=== PATIENT | female | born 1945 | race Caucasian/White ===

== ENCOUNTER → 2022-02-14 13:39 | Outpatient (CLI) | payer OTHER, SELFPAY ==
[2022-02-14 15:03] LABS: Add Manual Diff / Slide Review NO; Basophils Absolute Auto 100 /uL (0-100); Basophils Percent Auto 0.8 % (0-2); Eosinophils Absolute Auto 100 /uL (0-450); Hematocrit 37.5 % (36-46); Lymphocytes Absolute Auto 1800 /uL (1100-4500); Lymphocytes Percent Auto 26.6 % (25-40); Mean Corpuscular HGB Conc 34.8 % (30-36); Mean Corpuscular Volume 92.1 fL (80-100); Monocytes Absolute Auto 600 /uL (0-900); Monocytes Percent Auto 8.7 % (3-14); Neutrophils Absolute Auto 4100 /uL (1500-7000); Neutrophils Percent Auto 61.9 % (50-75); Platelet Count 188 X10^3/uL (150-400); Red Blood Cell Count 4.07 X10^6/uL (4.0-5.2); Red Cell Distribution Width 12.5 % (11.6-14.8); White Blood Cell Count 6.7 X10^3/uL (4.5-11.0)
[2022-02-14 15:24] LABS: Appearance Urine UA CLEAR; Bilirubin Urine UA NEGATIVE (NEGATIVE); Color Urine UA YELLOW; Glucose Urine UA NEGATIVE (Negative); Ketones Urine UA NEGATIVE (NEGATIVE); Leukocyte Esterase Urine UA TRACE (NEGATIVE); Nitrite Urine UA NEGATIVE (Negative); Occult Blood Urine UA TRACE-LYSED (Negative); Protein Urine UA NEGATIVE (Negative); Urobilinogen Urine UA 0.2 E.U./dL (0.2)
[2022-02-14 15:26] LABS: Blood Urea Nitrogen 14 mg/dL (7-17); Calcium 9.6 mg/dL (8.4-10.2); Carbon Dioxide 28 mmol/L (22-32); Chloride 101 mmol/L (98-107); Estimated Glomerular Filt Rate > 60 mL/min (>60); Glucose 94 mg/dL (80-110); HEMOLYSIS < 15 (0-50); Potassium 3.9 mmol/L (3.4-5.1); Sodium 138 mmol/L (137-145)
[2022-02-14 16:27] LABS: Bacteria Urine Moderate (10-30); Culture Indicated Urine Specimen Cultured; RBC Urine None Seen (0-5/HPF); Squamous Epithelial Cell Urine 1-5 /HPF (0-5/HPF); Transitional Epi Cells Urine 1-5/HPF (0-5/HPF); WBC Urine 5-10/HPF (0-5/HPF)
== END ==
PROVIDERS: PCP Registered Nurse; Referring Provider Orthopaedic Surgery; Visit Provider Orthopaedic Surgery
DX: Z01.818 Encounter for other preprocedural examination (principal); R73.9 Hyperglycemia, unspecified; Z01.812 Encounter for preprocedural laboratory examination; N39.0 Urinary tract infection, site not specified
CPT/HCPCS: 36415; 80048; 81001; 83036; 85025; 87077; 87086; 87147; 87186; 93005

== ENCOUNTER 2022-02-16 11:21 | Inpatient (IN) | payer OTHER, SELFPAY ==
[2022-02-16] VITALS (13 sets, daily range): BP systolic 114–155; BP diastolic 53–72; PULSE 76–92; RESP 14–36; TEMP 35.9–36.6; O2SAT 92–98; BMI 29.5
--- NOTE | 2022-02-16 | DI.RAD.S_ITS ---
PROCEDURE: XR PELVIS 1-2V INDICATIONS: intra op pelvis film TECHNIQUE: Intra-operative view of the pelvis and hip acquired. COMPARISON: None. FINDINGS: Bones: Intraoperative devices prior to placement of arthroplasty prostheses are in expected positions. No fractures or suspicious bony lesions. Soft tissues: Unremarkable IMPRESSION: Expected appearance of prosthetic Sizer for left hip arthroplasty. Dictated by: Heather Brewster M.D. on 02/16/2022 at 16:22 Approved by: Heather Brewster M.D. on 02/16/2022 at 16:23
--- NOTE | 2022-02-16 10:15 | DI.RAD.S_ITS ---
PROCEDURE: XR HIP W PEL IF DONE LT 2V INDICATIONS: hip fracture TECHNIQUE: AP pelvis and lateral view of the left hip acquired. COMPARISON: [facility], CR, XR PELVIS WITH LATERAL HIP LEFT, 02/14/2022, 12:53. [facility], CR, XR PELVIS 1-2V, 02/16/2022, 14:59. FINDINGS: Bones: Patient is status post left hip arthroplasty, with hardware components in expected positions. The hip joint appears congruent. The visualized bony structures appear intact. Moderate right hip degenerative change can be seen. Soft tissues: Overlying postoperative changes are noted. No suspicious soft tissue densities. Atherosclerotic calcification is noted. IMPRESSION: Normal postoperative examination. Dictated by: Vinh Abad M.D. on 02/16/2022 at 16:13 Approved by: Vinh Abad M.D. on 02/16/2022 at 16:14
--- NOTE | 2022-02-16 10:16 | PM.OP.1 ---
Operative Date/Time/Diagnoses Date of procedure: 02/16/22 Time of procedure: 13:30 Pre-op diagnosis: left hip femoral neck fracture Post-op diagnosis: same Procedure & Clinicians Procedure: Left hip unipolar Same procedure as scheduled: Yes Indications: The patient has a history of a fall with the acute onset of left hip pain. X-rays showed evidence of a left femoral neck fracture. She is brought to the operating room for a unipolar left hip replacement. The risks, benefits and alternatives to surgery were discussed with the patient prior to proceeding. Risks discussed included, but were not limited to, failure to relieve pain, leg length discrepancy, dislocation, stiffness, infection, nerve damage, deep venous thrombosis, pulmonary embolism, stroke, coma, heart attack, permanent paralysis and , as well as the potential need for eventual revision of the prosthetic. Surgeon: Adela Busby Production Stage Manager: Michelle Kraus Anesthesia Type: General and Spinal Operative Notes Findings: Soft bone, left femoral neck fracture, adequate stability, Closure Type: primary Specimen(s): none sent Prosthetic devices, grafts, tissues, transplants, or devices: busby and nephew size 12 cemented Synergy, +0 neck, 46 mm femoral head, +10 distal cement analyzer, small cement restrictor Estimated Blood Loss (mL): 250 Blood products transfused: none Procedure in detail: The patient was seen in the pre-operative area, where the patient identified the left hip as the operative site and this was marked with my initials. The patient received pre-operative antibiotics and was taken to the operating room and placed on the operative table in the supine position after satisfactory anesthesia. A time analysis clerk out was performed. Patient was placed in the lateral decubitus position and all bony prominences were carefully padded and the arms were appropriately position. The left lower extremity was prepared from the ankle to the iliac crest with ChloroPrep in the usual fashion and draped through sterile drapes. The hip was approached through posterolateral approach. Dissection was carried out down through skin and subcutaneous tissues. The fascia was opened. Gelpi retractors were placed. A Charnley retractor was placed. A small amount of inflamed bursa was resected. The piriformis was identified and protected. The other short external rotators and capsule were carefully stripped from the posterior aspect of the femur. They were tagged and carefully retracted. The femoral neck was brought up and an osteotomy was made of the residual femoral neck approximately 1 fingerbreadth above the lesser trochanter. The head was removed without difficulty. It was carefully sized. The acetabulum was meticulously irrigated with normal saline. There were [mild] changes in the acetabulum. The acetabulum was carefully protected with an E tape. The canal was opened with a box cutting osteotome, followed by a T-handled reamer and a lateralizing reamer. The tapered reamers were then used, followed by sequential broaching. She had very soft bone in her femoral neck. Calcar reaming was performed. A trial head and neck were then placed and the hip relocated and checked for leg length and stability. The patient was stable in the position of sleep, of squatting, and could be put through a range of motion with 45 degrees internal rotation without dislocation. At 90 degrees flexion, internal rotation to 70? was possible before dislocation. This was felt to be satisfactory and the appropriate components were opened, and the trials were removed. The femoral canal was sized and a distal cement restrictor was placed. The bone was meticulously cleaned with pulse lavage. The canal was packed with vaginal packing with epinephrine. Antibiotics cement was mixed and carefully pressurized into the femoral canal. The femoral component was placed without difficulty. A repeat trial reduction showed good range of motion and stability. We did a brief Betadine soak after the cement had hardened. Patient had good range of motion and stability. The final head and neck were placed after carefully irrigating the wound. The capsulomuscular flap was then repaired to the greater trochanter though an awl hole using the tag sutures. The short external rotators were repaired with Ethibond. The fascia nataliya was closed with interrupted Vicryl. The subcutaneous layer was closed with interrupted 3-0 Vicryl, and the skin with a running 3-0 V-Lock suture and surgical glue. An Aquacel Ag dressing was applied and the patient was taken to recovery having tolerated the procedure well. Complications: none Post-operative Condition: stable Disposition: Acute Care Plan for aftercare: The patient will be maintained on a standard total hip replacement protocol with weight bearing as tolerated and posterior hip precautions. The patient will receive Aspirin and sequential compression devices for DVT prophylaxis. The patient will be discharged home when safe for the home environment.
--- NOTE | 2022-02-16 11:48 | PM.PREOP ---
Pre-operative Note COVID-19 COVID-19 status: Negative Interval Note History & Physical reviewed/Exam performed by Physician: Yes Changes to H&P: No
[2022-02-16] MEDS: VANCOMYCIN 1,000 MG/200 ML PIGGYBACK 200 MG IV (12:10)
[2022-02-16 12:17] LABS: COVID19 -Nasal RAPID Negative (Negative)
[2022-02-16] MEDS: ACETAMINOPHEN 325 MG TABLET 975 MG PO (12:40)
[2022-02-16] MEDS: CELECOXIB 200 MG CAPSULE PO (12:40)
[2022-02-16] MEDS: LACTATED RINGERS 1,000 ML 42 ML IV ×2 (12:42→14:37)
[2022-02-16] MEDS: CEFAZOLIN 2 GM/100 ML PREMIX 100 ML IV ×2 (14:00→20:03)
[2022-02-16] MEDS: TRANEXAMIC ACID 1,000 MG VIAL 2000 MG INJ ×2 (14:28→15:51)
--- NOTE | 2022-02-16 14:44 | SUR.OPER ---
Lateral on bed, head on pillow, gel axillary roll in place, bottom leg bent with gel pad under knee to foot, secured with tape. Top leg left free and draped out for procedure Upper arm supported by pillows and secured over bottom arm to padded arm board. Hip chief business development officer system used to sustain position, gel pad proctecting pelvic area
[2022-02-16] MEDS: EPINEPHrine 1 MG/ML SUBCUT (14:54)
[2022-02-16] MEDS: BUPIVACAINE LIPOSOME 266 MG/20 ML VIAL INJ (14:57)
[2022-02-16] MEDS: BUPIVACAINE 0.25% (PF) VIAL 30 ML INJ (15:51)
--- NOTE | 2022-02-16 18:50 | PC.NURSE ---
Patient to room around 1715. Dressing to hip is cdi with aquacel. She complains of a sore throat from et tube being placed. She has feeling to her l.leg and ppx2. Patient had a spinal and denies any pain. She does not want to take her tylenol or ibuprofen until later. Resting comfortably. Incontinent of urine x1, patients bedding changed. She is tolerating her ivf and warm blanket.
[2022-02-16] MEDS: LACTATED RINGERS 1,000 ML 125 ML IV (18:55)
[2022-02-16] MEDS: DOCUSATE 100 MG CAPSULE PO (20:57)
[2022-02-16] MEDS: ASPIRIN EC 81 MG TABLET PO (20:57)
[2022-02-16] MEDS: METFORMIN HCL 500 MG TABLET 1000 MG PO (20:59)
--- NOTE | 2022-02-16 23:27 | PC.NURSE ---
Patient is alert and oriented. Breath sounds CTA but desats into upper 80'w when falling asleep so is currently on oxygen at 2L/min per NC with sat of 97%. HRR with murmur. BP elevated at 155/67. Denies nausea. BT hypoactive and has not yet passed flatus. Voided on previous shift but was incontinent likely related to anesthetic as patient states she normally has bladder control. Is able to turn herself in bed. Aquacel dressing to left hip is CDI. Denied pain at time of assessment. CMS is intact bilaterally. Wearing bilateral calf SCD's. Fall risk score is high and bed alarm is activated.
[2022-02-16] MEDS: ACETAMINOPHEN 325 MG TABLET 650 MG PO (23:35)
[2022-02-16] MEDS: IBUPROFEN 400 MG TABLET PO (23:35)
[2022-02-17 02:03] VITALS: BP 132/60; PULSE 91; RESP 18; TEMP 36.6; O2SAT 96
[2022-02-17] MEDS: LACTATED RINGERS 1,000 ML 125 ML IV (03:17)
[2022-02-17] MEDS: OXYCODONE IR 5 MG TABLET PO (03:22)
[2022-02-17] MEDS: CEFAZOLIN 2 GM/100 ML PREMIX 100 ML IV (03:23)
[2022-02-17 05:00] VITALS: BP 119/54; PULSE 87; RESP 18; TEMP 36.8; O2SAT 95
[2022-02-17] MEDS: ACETAMINOPHEN 325 MG TABLET 650 MG PO ×3 (05:48→18:00)
[2022-02-17] MEDS: IBUPROFEN 400 MG TABLET PO ×3 (05:48→17:59)
[2022-02-17 06:03] LABS: Hematocrit 33.2 % (36-46); Hemoglobin 11.4 g/dL (12.0-16.0)
[2022-02-17 07:38] VITALS: BP 129/60; RESP 17; TEMP 36.4; O2SAT 96
--- NOTE | 2022-02-17 08:06 | PC.NURSE ---
Addendum entered by Jillian Brandt R.N. 02/17/22 17:46: Patient is alert and oriented x4. She worked with physical therapy and is doing well. Melanynet may be discharged home tomorrow or the next day.Tylenol and ibuprofen effective for patients discomfort. Original Note: Assess- Patient is alert and oriented x4, bs is 113. She denies pain at this time. R.hip dressing is cdi and PPx2. Patient is tolerating a general diet for breakfast this morning.
[2022-02-17] MEDS: PANTOPRAZOLE DR 20 MG TABLET PO (08:15)
[2022-02-17] MEDS: ATORVASTATIN 20 MG TABLET 40 MG PO (08:15)
[2022-02-17] MEDS: ASPIRIN EC 81 MG TABLET PO ×2 (08:15→20:59)
[2022-02-17] MEDS: DOCUSATE 100 MG CAPSULE PO ×2 (08:15→20:59)
--- NOTE | 2022-02-17 08:18 | PM.PNPO.1 ---
Subjective Subjective Date Patient Seen: 02/17/22 Time Patient Seen: 08:18 Interval history: Pain is mild. Lives alone and has several steps at her place. No N/V. Otherwise without complaints. Exam Vital Signs (past 8 hours): - 02/17/22 02:03 02/17/22 05:00 02/17/22 07:38 Temperature 97.8 F 98.2 F 97.5 F L Pulse Rate 91 H 87 Respiratory Rate 18 18 17 Blood Pressure 132/60 119/54 L 129/60 Pulse Oximetry 96 95 96 Oxygen Flow Rate 2 2 2 Fraction of Inspired Oxygen 28 SaO2/FiO2 Ratio 350 Oxygen Delivery Method Nasal Cannula Oxygen Flow Rate 2 Narrative Exam Narrative: NAD. Dressing CDI. Motor function is intact bilat. LE. Sensation is grossly intact bilat. LE. Const General: cooperative and comfortable Orientation: alert Resp Effort & Inspection: normal respiratory effort and able to speak in complete sentences Objective Labs Result Diagrams: 02/17/22 05:19 Labs: Laboratory Results - last 24 hr 02/16/22 02/17/22 11:51 05:19 Hgb 11.4 L Hct 33.2 L SARS-CoV-2 (PCR) Negative FORMERLY [facility], 1928–1983 Medical History Astigmatism Radford's cyst of knee Cataract (lens) fragments in eye following cataract surgery, bilateral Diverticulosis Fatty liver Hearing loss Internal hemorrhoids Left anterior cruciate ligament tear Murmur Osteoarthritis of left knee Postmenopausal Primary osteoarthritis of knees, bilateral Umbilical hernia Surgical History History of tonsillectomy Hx of colonoscopy with polypectomy Social History household members: none Smoking Status: Former smoker alcohol intake: never Assessment & Plan Post-op Postoperative Procedures: Procedures Operation Date: 02/16/22 13:30 Actual Procedure Side Surgeon p Partial Hip Arthroplasty Left Adela Dent MD Postoperative day: 1 Postoperative status: doing well Postoperative plan: routine post-op care Postoperative plan narrative: Multimodal pain management PT WBAT, posterior hip precautions. ASA and SCDs for DVT prophy. Disposition: Home in 1--2 days. Quality VTE Deep Vein Thrombosis/Pulmonary Embolism Present on Admission: No
--- NOTE | 2022-02-17 10:37 | CM.DANOTE ---
Initial Discharge Assessment Note: Case reviewed, met with patient. Introduced self and role. Payer: [employer] and self pay PCP: Nell Ian 76 year old admitted yesterday and underwent Left partial NANCY by Dr Adela Dent. She states she has minimal pain this morning, looking forward to getting up with PT. 76 year old single female lives in [place], [place] and chose to have her surgery up here. 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 She has supportive family who live out of state but has multiple friends. She does not want to go home unless she can be fully independent. She has two different sets of stairs, 8 steps each with rails on both sides. She brought her front wheel walker to the hospital with her. Plan: Home vs SNF (PT pending), due to patient lives alone and has some stairs to navigate. If home, her local senior services will provide transport she states. JAMAAL Discharge Planning/Care Management CM Discharge Assessment Start: 02/17/22 10:35 Freq: Status: Active Protocol: Document 02/17/22 10:35 (Rec: 02/17/22 10:37 [id number]) Discharge Planning Assessment Advance Directives? No History Provided By Patient Prior Living Arrangements House Household Members none Type of transporation used prior to Drives own vehicle admit Independent with ADL's Yes Is patient alert and oriented? Yes Caregiver for Another No Barriers to Discharge No Discharge Plan Home Whiteboard Updated in Patient Room with Yes name and ext. # of Manufacturing Project Engineer Review Status In Process Next Review Type Continued Stay Review
[2022-02-17 12:00] VITALS: BP 109/43; PULSE 67; RESP 16; TEMP 36.5; O2SAT 95
--- NOTE | 2022-02-17 12:01 | PT.IIE ---
Current Diagnoses Fracture of unspecified part of neck of left femur, initial encounter for closed fracture (02/16/22) Surgery Performed Operation Date: 02/16/22 13:30 Actual Procedures p Partial Hip Arthroplasty(Left) - Adela Dent MD Surgical History (Last Reviewed 02/17/22 @ 08:20 by Darron Yu PA-C) History of tonsillectomy Hx of colonoscopy with polypectomy Medical History (Last Reviewed 02/17/22 @ 08:20 by Darron Yu PA-C) Astigmatism Radford's cyst of knee Cataract (lens) fragments in eye following cataract surgery, bilateral Diverticulosis Fatty liver Hearing loss Internal hemorrhoids Left anterior cruciate ligament tear Murmur Osteoarthritis of left knee Postmenopausal Primary osteoarthritis of knees, bilateral Umbilical hernia Physical Therapy Inpatient Evaluation/Re-Eval M1 PT/OT-IP Prior Functional Status Start: 02/17/22 11:47 Freq: Status: Active Protocol: Document 02/17/22 11:47 BC (Rec: 02/17/22 12:01 [id number]) Medical Review Prior Functional Status Medical History Reviewed Yes Communication WNL Mobility and Gait Independent; walks 45 min near daily for exercise. Activities of Daily Living and IADL's Independent Prior Functional Level (Other details) Works as a school teacher Social History Household Members none Living Arrangements Apartment/Condo Number of Stairs To Enter/Railing? One flight of stairs to enter apartment. 8 steps, then a landing, 8 steps more. Bilateral railing that can be reached simultaneously. Home Environment High Toilet,Tub/Shower Home Equipment Front Wheel Walker,Grab Bars In Shower Employment Status Software Installer Employed M2 PT-IP Current Condition Start: 02/17/22 11:47 Freq: Status: Active Protocol: Document 02/17/22 11:47 BC (Rec: 02/17/22 12:01 [id number]) Physical Therapy Current Condition Current Condition Evaluation Date 02/17/22 Treatment Diagnosis difficulty with ambulation Onset Date 02/16/22 M3 PT-IP Subjective Start: 02/17/22 11:47 Freq: Status: Active Protocol: Document 02/17/22 11:47 BC (Rec: 02/17/22 12:01 [id number]) Subjective Physical Therapy Visit Type Type Initial Evaluation Visit Start Time 10:40 Visit Stop Time 11:20 Total Visit Minutes 35 Physical Therapy Visit Comments Patient Comments I am concerned about going home alone. Patient Goals To be fully independent again and working. Therapy Pain Assessment Pain When Pain Assessed At Rest Pain Present Pain Present Pain Reported Location Left Hip Intensity 2 M4 PT-IP Mobility and Gait Start: 02/17/22 11:47 Freq: Status: Active Protocol: Document 02/17/22 11:47 BC (Rec: 02/17/22 12:01 [id number]) PT-Bed Mobility Assessment Supine to Sit Supine to Sit Contact Guard Assistance Scooting Scooting to Edge of Bed Minimal Assistance PT-Transfer Assessment Sit to and From Stand Sit to and from Stand Contact Guard Assistance Equipment Transfer Assistive Device Gait Belt Transfers Transfer Destination Bed,Chair Transfer Technique Stand Step Pivot Transfer Ability Level of Assist Contact Guard Assistance Comments Mobility Comments FWW for stand pivot transfer, VCs throughout on hip precautions. Gait Assessment Gait Gait Assistance Required: Contact Guard Assist Distance (Feet) 100 Able to Maintain Weight Bearing Status Yes During Gait Assistive Devices Assistive Device Gait Belt,Front Wheeled Walker Gait Deviations General Gait Pattern Antalgic,Decreased Stride Length,Decreased Feet Clearance,Step-to Gait Factors Limiting Gait Function Factors Limiting Gait Function Decreased Activity Tolerance, Decreased Sensation,Decreased Strength,Pain,Poor Balance Comments Gait Comments Reduced WB tolerance on LLE resulting in reduced SLS time and a more step to gait pattern. Stair Climbing Assessment Evaluation Level of Assist On Stairs Contact Guard Assistance, Minimal Assistance Devices Stair Climbing Assistive Devices Left Railing,Right Railing Technique/Endurance Stair Climbing Direction Descend Stair Climbing Technique Step to Step Number of Steps Climbed 3 Query Text: Comments Stair Climbing Comments Pt requiring CGA to min A for balance/safety. Cues 100% of time for technique. She was not safe to bring FWW (folded) up/down stairs with her as she would have to at her home. PT-Balance Assessment Sitting Balance and Reactions Static Sitting Balance Ability Normal Dynamic Sitting Balance Ability Good Standing Balance and Reactions Static Standing Balance Ability Good Dynamic Standing Balance Ability Fair M5 PT-IP Objective Assessments Start: 02/17/22 11:47 Freq: Status: Active Protocol: Document 02/17/22 11:47 BC (Rec: 02/17/22 12:01 [id number]) Orientation Orientation/Cognition Level of Alertness Alert Orientation Name,Date,Year,Day of Week, Place,Situation Language Function Ability No Deficits Noted Safety Awareness Understands Safety Issues Gross Range of Motion Upper Extremity ROM Assessment Within Functional Limits Lower Extremity ROM Assessment Left Impaired Strength Upper Extremity Strength Assessment Within Functional Limits Lower Extremity Strength Assessment Left Impaired Comments Strength Comments Good 5/5 UE strength. RLE intact 5/5. LLE demonstrates at least 3/5 strength functionally. Coordination Assessment Gross Coordination Gross Coordination WNL Sensation Assessment Sensation Gross Sensation WNL Muscle Tone Muscle Tone WNL Yes M6 PT-IP Treatment Start: 02/17/22 11:47 Freq: Status: Active Protocol: Document 02/17/22 11:47 BC (Rec: 02/17/22 12:01 [id number]) Physical Therapy Treatment Education Education Provided Precautions,Weight Bearing Status,Post-Op Packet,Safety Brace Education Patient Other Treatments Other Treatment Performed Educated and practiced post NANCY applications in various scenarios at Pt request. Including bed mobility, sit to stand transfers, seated tasks . Pt had good questions regarding 90 deg limitations. Multiple cues to not cross legs given during this PT session. Cues also needed to avoid pivot turning to L with planted LLE. M7 PT-IP Assessment and Plan Start: 02/17/22 11:47 Freq: Status: Active Protocol: Document 02/17/22 11:47 (Rec: 02/17/22 12:01 [id number]) PT Summary Assessment and Plan Potential Rehabilitation Potential Excellent Status of Condition at Evaluation Evolving Summary Impairments Pain,ROM,Strength,Balance,Bed Mobility,Transfers,Gait, Activity Tolerance Progress Towards Goals Progressing Toward Goals Assessment Summary Pt s/p partial L NANCY due to femoral neck fracture from a fall. Pt's PLOF: Lives I'ly in second story apt with 16 steps to enter. She has friends in the community that may be able to help on limited basis but no consistent support for ADLs in her home. Her PLOF was fully independent and working as a school teacher. She was very active walking 45 min daily. CLOF: Requires min to CGA for transfers and ambulation. She needed frequent reminders and cues on hip precautions. She will require more training with OT on self care ADLs as Pt lives alone. She required education from PT on transfers from various height chairs and discussion of home set up . Pt asking if she can lie down to take a bath vs showering and if she can sit in her swivel/rolling desk chair. Provided extensive education on eval today regarding hip precuations, fall risk and safe mobility. At this time, recommend SNF for daily therapy and PT/OT training given Pt lives alone and has no caregiver support. She has a history (Pt reported ) of L hip dislocation several years ago that she self approximated and never seeked medical support. Concern for hip precaution adherence given she lives alone and must complete all ADLs I'ly. Goals Bed Mobility Goal Independent Transfer Goal Independent Gait Goal Independent Gait Distance 200 Other Goals Ascend/descend 16 steps with modif I, carrying folded FWW. Pt will adhere to all hip precautions 100% of PT session without verbal cues. Days to Meet Goals 3 Frequency of Treatment Frequency Of Treatment Twice a Day Treatment Plan Physical Therapy Treatment Plan Bed Mobility Training,Transfer Training,Gait Training, Therapeutic Exercise,Balance Retraining,Post Op Education, Discharge Planning, Neuromuscular Re-ed Precautions Posterior Hip Precautions No Hip Flexion > 90 degrees,No Hip Internal Rotation,No Hip Adduction Weight Bearing Status Weight Bearing Status Weight Bear as Tolerated Recommendations To Nursing Amount of Assist Needed 1 Person Assist Discharge Recommendations PT Discharge Recommendations Home Health,SNF Rehab Other Discharge Recommendations SNF with potential of progress pending LOS in acute care. Recommend OT consult. Transportation Needs at Discharge Private Vehicle,Wheelchair/ Cabulance
--- NOTE | 2022-02-17 14:27 | PT.IPTN ---
Current Diagnoses Fracture of unspecified part of neck of left femur, initial encounter for closed fracture (02/16/22) Surgery Performed Operation Date: 02/16/22 13:30 Actual Procedures p Partial Hip Arthroplasty(Left) - Adela Dent MD Physical Therapy Treatment Note M2 PT-IP Current Condition Start: 02/17/22 11:47 Freq: Status: Active Protocol: Document 02/17/22 13:50 SP (Rec: 02/17/22 17:07 SP [id number]) Physical Therapy Current Condition Current Condition Evaluation Date 02/17/22 Treatment Diagnosis difficulty with ambulation Onset Date 02/16/22 M3 PT-IP Subjective Start: 02/17/22 11:47 Freq: Status: Active Protocol: Document 02/17/22 13:50 SP (Rec: 02/17/22 17:07 SP [id number]) Subjective Physical Therapy Visit Type Type Treatment Note Visit Start Time 13:49 Visit Stop Time 14:27 Total Visit Minutes 38 Number of CHANGE CONSULTANT Visits 1 Physical Therapy Visit Comments Patient Comments I am concerned about going home alone, I am forgetful and know I have needed alot discussion to do things safely . Patient Goals To be fully independent again and working. Therapy Pain Assessment Pain Present Pain Present Pain Reported Location Left Hip Intensity 2 Scale Used Numeric (0 - 10) Pain Behaviors Facial Grimacing Pain Management Techniques Distraction,Timing of Activity with Medications M4 PT-IP Mobility and Gait Start: 02/17/22 11:47 Freq: Status: Active Protocol: Document 02/17/22 13:50 SP (Rec: 02/17/22 17:07 SP [id number]) PT-Bed Mobility Assessment Sit to Supine Sit to Supine Contact Guard Assistance, Minimal Assistance,1 Person Assistance,Bedrails Scooting Scooting Up and Down in Bed Standby Assistance PT-Transfer Assessment Sit to and From Stand Sit to and from Stand Contact Guard Assistance,Use of Upper Extremities Equipment Transfer Assistive Device Gait Belt,Front Wheeled Walker Orthotic/Prosthetic Devices or Brace: No Transfers Transfer Destination Bed Transfer Technique pt ambulated using FWW Transfer Ability Level of Assist Contact Guard Assistance, Minimal Assistance,1 Person Assistance,Use of Upper Extremities Comments Mobility Comments Pt up in chair when arrived. Recalled 2/3 precautions, took time to remember no crossing legs and had to be reminded to hip flexion >90 deg. Sit> stand CGA to FWW, cue redirection push from chair arms. Forward gait w/ FWW 3 ft then L knee buckled CG- Min A to recover with heavy BUE WB on FWW. Pt reported really scared her, thought was going to fall. Pt progressed gait with Mod cues for L quad facilitation during midstance. Progressed gait to stairs, w/ c follow for safety approx 100 ft, cued small march stepping during turns. Pt able to ascend/descend 16 stairs B HR, 1 set carrying self folded FWW on LUE up/down stairs step to patterning CGA with occasional cues for proper LE patterning lead RLE up/ LLE down, no LOB, she tires and brief stop stand rests. Pt walked back to room 100 ft, once close to R side bed parked FWW off to side slightly and reached outside [place] and limp unsteady on LLE but no buckly to get last 1 ft to EOB, CHANGE CONSULTANT instructed pt to stop keep FWW with her fully pivot and back up to bed then reach back for slow sit on bed . Pt required CG/Min A for LLE into bed, able to self center using BUE and RLE bent. CHANGE CONSULTANT instructed post-op exercises to perform in supine with review HO. She would benefit from OT for DME support with ADLs. Pt had call light and all needs in reach with bed alarmed. CHANGE CONSULTANT discussed recommending SNF to improve strength and safety further education mobilizing before returning home, pt verbalized in agreement, LLE not strong yet. Pt does not have anyone to assist her at home. Gait Assessment Gait Gait Assistance Required: Contact Guard Assist,Minimum Assistance,1 Person Assist Distance (Feet) 200 Able to Maintain Weight Bearing Status Yes During Gait Assistive Devices Assistive Device Gait Belt,Front Wheeled Walker Gait Deviations General Gait Pattern Antalgic,Decreased Stride Length,Decreased Feet Clearance,Step-to Gait Factors Limiting Gait Function Factors Limiting Gait Function Decreased Activity Tolerance, Decreased Strength,Pain,Poor Balance,Poor Safety Awareness Comments Gait Comments L knee buckled during initial gait in room, improved with skilled cues. Decreased safety awareness placing FWW off to sided when closer to bed, cues keep with her fully until back and reach sit, reduce fall risk. Stair Climbing Assessment Evaluation Level of Assist On Stairs Contact Guard Assistance,1 Person Assistance Devices Stair Climbing Assistive Devices Left Railing,Right Railing Technique/Endurance Stair Climbing Direction Ascend and Descend Stair Climbing Technique Step to Step Number of Steps Climbed 3 Stair Climbing Set # Repetitions (reps) 6 Comments Stair Climbing Comments step to patterning B HR, occasional cues for proper patterning, was ableto carry FWW on LUE x1 set of 3 steps would need to at home. No LOB, stable on stairs but safety cues needed, including marching step to maintain no hip IR precautions. PT-Balance Assessment Sitting Balance and Reactions Static Sitting Balance Ability Normal Dynamic Sitting Balance Ability Good Standing Balance and Reactions Static Standing Balance Ability Good Dynamic Standing Balance Ability Fair Device Used FWW M5 PT-IP Objective Assessments Start: 02/17/22 11:47 Freq: Status: Active Protocol: Document 02/17/22 11:47 BC (Rec: 02/17/22 12:01 BC [id number]) Orientation Orientation/Cognition Level of Alertness Alert Orientation Name,Date,Year,Day of Week, Place,Situation Language Function Ability No Deficits Noted Safety Awareness Understands Safety Issues Gross Range of Motion Upper Extremity ROM Assessment Within Functional Limits Lower Extremity ROM Assessment Left Impaired Strength Upper Extremity Strength Assessment Within Functional Limits Lower Extremity Strength Assessment Left Impaired Comments Strength Comments Good 5/5 UE strength. RLE intact 5/5. LLE demonstrates at least 3/5 strength functionally. Coordination Assessment Gross Coordination Gross Coordination WNL Sensation Assessment Sensation Gross Sensation WNL Muscle Tone Muscle Tone WNL Yes M6 PT-IP Treatment Start: 02/17/22 11:47 Freq: Status: Active Protocol: Document 02/17/22 13:50 SP (Rec: 02/17/22 17:07 SP [id number]) Physical Therapy Treatment Exercises Exercises Ankle Pumps,Gluteal Sets,Quad Sets,Heel Slides Knee ROM Measurement 70 deg L knee flexion supine AROM Education Education Provided Precautions,Weight Bearing Status,Post-Op Packet,Safety Brace Education Patient Other Treatments Other Treatment Performed Pt education safety proper use FWW, maintaining precautions during mobilty recalled 2/3 with time to remember then look at her handout. M7 PT-IP Assessment and Plan Start: 02/17/22 11:47 Freq: Status: Active Protocol: Document 02/17/22 13:50 SP (Rec: 02/17/22 17:07 SP [id number]) PT Summary Assessment and Plan Potential Rehabilitation Potential Excellent Status of Condition at Evaluation Evolving Summary Impairments Pain,ROM,Strength,Balance,Bed Mobility,Transfers,Gait, Activity Tolerance Progress Towards Goals Progressing Toward Goals,Slow Progress due to Activity Tolerance,Slow Progress - Other Assessment Summary Pt PLOF I using FWW, 16 stairs B HR. She required Min A for LLE into bed, CG- Min A x1 recovery support due to L knee buckled during gait in room using FWW, improved with cues. FUrther distance 200 ft total but when closer to bed return [place] off to side limping reach outside of [place], unsteady CGA, education cues for proper use FWW. Pt does not have support at home to assist her, recommending SNF for continued skilled strength and safety techniques during mobility to prevent risk of falls. Recommending OT consultation for education on DME for ADLs and maintain hip precautions. Will continue to assess progress. Goals Bed Mobility Goal Independent Transfer Goal Independent Gait Goal Independent Gait Distance 200 Other Goals Ascend/descend 16 steps with modif I, carrying folded FWW. Pt will adhere to all hip precautions 100% of PT session without verbal cues. Days to Meet Goals 3 Frequency of Treatment Frequency Of Treatment Twice a Day Treatment Plan Physical Therapy Treatment Plan Bed Mobility Training,Transfer Training,Gait Training, Therapeutic Exercise,Balance Retraining,Post Op Education, Discharge Planning, Neuromuscular Re-ed Other Recommendations and Next Treatment bed mob, safe transfers, gait Focus w/ FWW use properly, post op ex, check recall/demostration of precautions, needs be I to return home. Precautions Posterior Hip Precautions No Hip Flexion > 90 degrees,No Hip Internal Rotation,No Hip Adduction Weight Bearing Status Weight Bearing Status Weight Bear as Tolerated Recommendations To Nursing Amount of Assist Needed 1 Person Assist Discharge Recommendations PT Discharge Recommendations SNF Rehab Other Discharge Recommendations SNF with potential of progress pending LOS in acute care. Recommend OT consult. Transportation Needs at Discharge Private Vehicle,Wheelchair/ Cabulance
[2022-02-17 15:49] VITALS: BP 121/40; PULSE 68; RESP 17; TEMP 36.6; O2SAT 92
[2022-02-17] MEDS: METFORMIN HCL 500 MG TABLET 250 MG PO (18:00)
[2022-02-17 20:00] VITALS: BP 122/38; PULSE 65; RESP 18; TEMP 36.5; O2SAT 95
[2022-02-17] MEDS: SODIUM CHLORIDE 0.9% FLUSH 10 ML IV (20:59)
--- NOTE | 2022-02-17 22:49 | PC.NURSE ---
Patient is alert and oriented. Breath sounds CTA with RA sat of 95%. HRR w/murmur and has pacemaker. BP improved tonight at 122/38. Denies nausea. BT hypoactive and reports she has not passed flatus as yet and noted to have not had BM since 02/14. Is voiding and denies dysuria. Able to turn herself in bed. Ambulating in lobo with walker and standby assistance. Aquacel dressing to left hip is CDI. CMS intact bilaterally. Bilateral calf SCD's applied once back in bed for night. Fall risk score is high and bed alarm is activated.
[2022-02-18] VITALS (7 sets, daily range): BP systolic 95–139; BP diastolic 40–55; PULSE 60–75; RESP 16–18; TEMP 36.2–36.7; O2SAT 93–100
[2022-02-18] MEDS: ACETAMINOPHEN 325 MG TABLET 650 MG PO ×4 (00:05→17:36)
[2022-02-18] MEDS: IBUPROFEN 400 MG TABLET PO ×4 (00:05→17:36)
--- NOTE | 2022-02-18 08:28 | PM.PNPO.1 ---
Subjective Subjective Date Patient Seen: 02/18/22 Time Patient Seen: 08:28 Interval history: Feeling well this morning. Pain controlled. Work with physical therapy yesterday required extra help. Has steps to go into her house. Lives alone. May require either home health or short group home stay due to the recent hip fracture and partial hip replacement Exam Vital Signs (past 8 hours): - 02/18/22 00:38 Temperature 97.6 F Pulse Rate 75 Respiratory Rate 18 Blood Pressure 139/55 L Pulse Oximetry 93 Oxygen Flow Rate 0 Fraction of Inspired Oxygen 28 SaO2/FiO2 Ratio 350 Oxygen Delivery Method Room Air Oxygen Flow Rate 0 Narrative Exam Narrative: Alert oriented female no acute rest stress sitting up in bed. Dressing clean dry and intact. Demonstrates dorsiflexion 5/5 plantar flexion 5/5. Sensation intact to light touch. Objective Labs Result Diagrams: 02/17/22 05:19 [facility] Medical History Astigmatism Radford's cyst of knee Cataract (lens) fragments in eye following cataract surgery, bilateral Diverticulosis Fatty liver Hearing loss Internal hemorrhoids Left anterior cruciate ligament tear Murmur Osteoarthritis of left knee Postmenopausal Primary osteoarthritis of knees, bilateral Umbilical hernia Surgical History History of tonsillectomy Hx of colonoscopy with polypectomy Social History household members: none Smoking Status: Former smoker alcohol intake: never Assessment & Plan Post-op Postoperative Procedures: Procedures Operation Date: 02/16/22 13:30 Actual Procedure Side Surgeon p Partial Hip Arthroplasty Left Adela Dent MD Postoperative day: 2 Postoperative status: doing well Postoperative status narrative: Postop day 2 left justice arthroplasty, posterior approach with Dr. Dent Postoperative plan: routine post-op care Postoperative plan narrative: Weightbear as tolerated, posterior hip precautions left hip Work with physical therapy and occupational therapy. Either home with home health or group home based on therapy progress Will discharge to appropriate home or facility when optimized by therapy. Aspirin 81 mg and SCDs for DVT prophylaxis Follow-up in 2 weeks with [facility] Orthopedic surgery Time Spent With Patient Time with patient: less than 15 minutes Quality VTE Deep Vein Thrombosis/Pulmonary Embolism Present on Admission: No
[2022-02-18] MEDS: DOCUSATE 100 MG CAPSULE PO ×2 (08:50→22:02)
[2022-02-18] MEDS: ASPIRIN EC 81 MG TABLET PO ×2 (08:50→22:02)
[2022-02-18] MEDS: ATORVASTATIN 20 MG TABLET 40 MG PO (08:50)
[2022-02-18] MEDS: SODIUM CHLORIDE 0.9% FLUSH 10 ML IV ×2 (08:51→22:02)
[2022-02-18] MEDS: lisinopriL 20 MG TABLET PO (08:51)
[2022-02-18] MEDS: PANTOPRAZOLE DR 20 MG TABLET PO (08:51)
--- NOTE | 2022-02-18 09:04 | PT.IPTN ---
Current Diagnoses Fracture of unspecified part of neck of left femur, initial encounter for closed fracture (02/16/22) Surgery Performed Operation Date: 02/16/22 13:30 Actual Procedures p Partial Hip Arthroplasty(Left) - Adela Dent MD Physical Therapy Treatment Note M2 PT-IP Current Condition Start: 02/17/22 11:47 Freq: Status: Active Protocol: Document 02/17/22 13:50 SP (Rec: 02/17/22 17:07 SP [id number]) Physical Therapy Current Condition Current Condition Evaluation Date 02/17/22 Treatment Diagnosis difficulty with ambulation Onset Date 02/16/22 M3 PT-IP Subjective Start: 02/17/22 11:47 Freq: Status: Active Protocol: Document 02/18/22 15:32 LJ (Rec: 02/18/22 15:44 LJ [id number]) Subjective Physical Therapy Visit Type Type Treatment Note Visit Start Time 14:51 Visit Stop Time 15:15 Total Visit Minutes 24 Number of BIOINFORMATICS SUPPORT SPECIALIST Visits 1 Physical Therapy Visit Comments Patient Comments Pt wanting to walk. States she would like to spend a day or 2 in a rehab setting to improve her mobility and confidence prior to going home where she lives alone. Therapy Pain Assessment Pain When Pain Assessed During Mobility Pain Present Pain Present Denied Pain M4 PT-IP Mobility and Gait Start: 02/17/22 11:47 Freq: Status: Active Protocol: Document 02/18/22 15:32 LJ (Rec: 02/18/22 15:44 LJ [id number]) PT-Transfer Assessment Sit to and From Stand Sit to and from Stand Independent Equipment Transfer Assistive Device Gait Belt,Front Wheeled Walker Transfers Transfer Destination Chair Transfer Technique ambulated using FWW Transfer Ability Level of Assist Independent Comments Mobility Comments Pt in bed upon arrival. Assisted with lowering foot rest then pt independent with sit>stand. Upon return to room pt ambulated to chair and reached back and lowered herself into chair independently. Gait Assessment Gait Gait Assistance Required: Independent,Standby Assistance Distance (Feet) 500 Able to Maintain Weight Bearing Status Yes During Gait Assistive Devices Assistive Device Gait Belt,Front Wheeled Walker Gait Deviations General Gait Pattern Decreased Stride Length Factors Limiting Gait Function Factors Limiting Gait Function Decreased Strength,Pain Comments Gait Comments Pt ambulated to south end of hallway then around the [facility] then to stairs where she went up/down carrying her FWW without any safety issues or difficulty. Ambulated back to room. Pt left sitting in chair with all needs within reach. Stair Climbing Assessment Evaluation Level of Assist On Stairs Independent,Standby Assistance Devices Stair Climbing Assistive Devices Left Railing,Right Railing Technique/Endurance Stair Climbing Direction Ascend and Descend Stair Climbing Technique Step to Step Number of Steps Climbed 6 Comments Stair Climbing Comments Pt repeated stair climbing techniques earlier this morning. No safety issues or difficulties. Verbalized step pattern for ascending and descending with appropriate LE . M5 PT-IP Objective Assessments Start: 02/17/22 11:47 Freq: Status: Active Protocol: Document 02/18/22 09:58 BC (Rec: 02/18/22 10:07 BC [id number]) Orientation Orientation/Cognition Level of Alertness Alert Orientation Name,Age,Birthday,Month,Date, Year,Day of Week,Place, Situation Strength Lower Extremity Strength Assessment Left Impaired Comments Strength Comments LLE ankle 5/5; LLE knee flx/ ext 4-/5; LLE hip flx/abd 3+/5 M6 PT-IP Treatment Start: 02/17/22 11:47 Freq: Status: Active Protocol: Document 02/18/22 15:32 LJ (Rec: 02/18/22 15:44 LJ [id number]) Physical Therapy Treatment Exercises Exercises Ankle Pumps,Gluteal Sets,Quad Sets,Heel Slides Education Education Provided Precautions,Safety M7 PT-IP Assessment and Plan Start: 02/17/22 11:47 Freq: Status: Active Protocol: Document 02/18/22 15:32 LJ (Rec: 02/18/22 15:44 [id number]) PT Summary Assessment and Plan Potential Rehabilitation Potential Excellent Status of Condition at Evaluation Stable Summary Impairments Pain,Strength,Bed Mobility, Transfers,Gait,Activity Tolerance Progress Towards Goals Progressing Toward Goals Assessment Summary Pt increased gait distance and demonstrated safety on stairs . She is well aware and compliant with precautions and verbalizes them often during treatment. She is still wanting to go to SNF for a couple of days because she is concerned about going home alone. States she has friends who will look in on her but not constantly. Recommend HHPT to continue to improve strength, gait, and activity tolerance. Goals Bed Mobility Goal Independent Transfer Goal Independent Gait Goal Independent,Front Wheel Walker Gait Distance 500 Other Goals Stair ascent/descent x16 steps with walker and modif Ind. Recall all HEP without vc's for support Days to Meet Goals 2 Frequency of Treatment Frequency Of Treatment Twice a Day Treatment Plan Physical Therapy Treatment Plan Bed Mobility Training,Transfer Training,Gait Training, Therapeutic Exercise,Balance Retraining,Post Op Education, Discharge Planning,Hot or Cold Pack,Neuromuscular Re-ed, Coordination Retraining,Manual Therapy Precautions Posterior Hip Precautions No Hip Flexion > 90 degrees,No Hip Internal Rotation,No Hip Adduction Weight Bearing Status Weight Bearing Status Weight Bear as Tolerated Recommendations To Nursing Amount of Assist Needed Standby Assistance Discharge Recommendations PT Discharge Recommendations Home with Assistance,Home Health Transportation Needs at Discharge Private Vehicle
--- NOTE | 2022-02-18 10:07 | PT.IIE ---
Current Diagnoses Fracture of unspecified part of neck of left femur, initial encounter for closed fracture (02/16/22) Surgery Performed Operation Date: 02/16/22 13:30 Actual Procedures p Partial Hip Arthroplasty(Left) - Adela Dent MD Surgical History (Last Reviewed 02/17/22 @ 08:20 by Darron Yu PA-C) History of tonsillectomy Hx of colonoscopy with polypectomy Medical History (Last Reviewed 02/17/22 @ 08:20 by Darron Yu PA-C) Astigmatism Radofrd's cyst of knee Cataract (lens) fragments in eye following cataract surgery, bilateral Diverticulosis Fatty liver Hearing loss Internal hemorrhoids Left anterior cruciate ligament tear Murmur Osteoarthritis of left knee Postmenopausal Primary osteoarthritis of knees, bilateral Umbilical hernia Physical Therapy Inpatient Evaluation/Re-Eval M1 PT/OT-IP Prior Functional Status Start: 02/17/22 11:47 Freq: Status: Active Protocol: Document 02/17/22 11:47 BC (Rec: 02/17/22 12:01 BC [id number]) Medical Review Prior Functional Status Medical History Reviewed Yes Communication WNL Mobility and Gait Independent; walks 45 min near daily for exercise. 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 One flight of stairs to enter apartment. 8 steps, then a landing, 8 steps more. Bilateral railing that can be reached simultaneously. Home Environment High Toilet,Tub/Shower Home Equipment Front Wheel Walker,Grab Bars In Shower Employment Status [employer] Employed M2 PT-IP Current Condition Start: 02/17/22 11:47 Freq: Status: Active Protocol: Document 02/17/22 13:50 SP (Rec: 02/17/22 17:07 SP [id number]) Physical Therapy Current Condition Current Condition Evaluation Date 02/17/22 Treatment Diagnosis difficulty with ambulation Onset Date 02/16/22 M3 PT-IP Subjective Start: 02/17/22 11:47 Freq: Status: Active Protocol: Document 02/18/22 09:58 BC (Rec: 02/18/22 10:07 BC [id number]) Subjective Physical Therapy Visit Type Type Treatment Note Visit Start Time 09:00 Visit Stop Time 09:30 Total Visit Minutes 30 Physical Therapy Visit Comments Patient Comments I want to feel more confident before going home. If I could stay till Wed I will feel better. Therapy Pain Assessment Pain When Pain Assessed At Rest Pain Present Pain Present Pain Reported Location Left Hip Intensity 2 Description Aching M4 PT-IP Mobility and Gait Start: 02/17/22 11:47 Freq: Status: Active Protocol: Document 02/18/22 09:58 BC (Rec: 02/18/22 10:07 [id number]) PT-Bed Mobility Assessment Supine to Sit Supine to Sit Independent Scooting Scooting to Edge of Bed Independent PT-Transfer Assessment Sit to and From Stand Sit to and from Stand Independent Equipment Transfer Assistive Device Front Wheeled Walker Transfers Transfer Destination Bed,Chair Transfer Technique Stand Step Pivot Transfer Ability Level of Assist Independent Comments Mobility Comments STS from EOB and recliner chair with modif Ind use of FWW. No verbal cues given and Pt was completing transfers with excellent awareness of hip precautions. Verbalizing them throughout the transfer. Gait Assessment Gait Gait Assistance Required: Independent Distance (Feet) 425 Able to Maintain Weight Bearing Status Yes During Gait Assistive Devices Assistive Device Front Wheeled Walker Gait Deviations General Gait Pattern Decreased Stride Length Factors Limiting Gait Function Factors Limiting Gait Function Decreased Strength,Pain Comments Gait Comments Pt ambulated 2 laps around [facility] without rest break. She has improved step through gait pattern with more equal WB time in SLS bilaterally. No physical support or intervention needed by PT. Pt again verbalized and demonstrated correct technique for pivot turns to L without planting L foot to avoid hip IR (hip precuations) Stair Climbing Assessment Evaluation Level of Assist On Stairs Standby Assistance Devices Stair Climbing Assistive Devices Left Railing,Right Railing Technique/Endurance Stair Climbing Direction Ascend and Descend Stair Climbing Technique Step to Step Number of Steps Climbed 6 Query Text: Comments Stair Climbing Comments Pt accurately recalled technique of stair mgmt and carried FWW safely up/down 6 steps without verbal intervention by PT. PT provided just SBA for safety given increased fall risk on stairs but no intervention required. M5 PT-IP Objective Assessments Start: 02/17/22 11:47 Freq: Status: Active Protocol: Document 02/18/22 09:58 BC (Rec: 02/18/22 10:07 [id number]) Orientation Orientation/Cognition Level of Alertness Alert Orientation Name,Age,Birthday,Month,Date, Year,Day of Week,Place, Situation Strength Lower Extremity Strength Assessment Left Impaired Comments Strength Comments LLE ankle 5/5; LLE knee flx/ ext 4-/5; LLE hip flx/abd 3+/5 M6 PT-IP Treatment Start: 02/17/22 11:47 Freq: Status: Active Protocol: Document 02/18/22 09:58 BC (Rec: 02/18/22 10:07 [id number]) Physical Therapy Treatment Exercises Exercises Ankle Pumps,Gluteal Sets,Quad Sets,Heel Slides,Supine Hip Abduction Education Education Provided Precautions,Post-Op Packet Brace Education Patient Other Treatments Other Treatment Performed Educated and Pt completed all HEP in post - op packet with good safety awareness to hip precautions. She recalls 3/3 THP. M7 PT-IP Assessment and Plan Start: 02/17/22 11:47 Freq: Status: Active Protocol: Document 02/18/22 09:58 BC (Rec: 02/18/22 10:07 [id number]) PT Summary Assessment and Plan Potential Rehabilitation Potential Excellent Status of Condition at Evaluation Stable Summary Impairments Pain,Strength,Bed Mobility, Transfers,Gait,Activity Tolerance Progress Towards Goals Progressing Toward Goals Assessment Summary Pt has demonstrated great progress today. Her recall from PT sessions yesterday with regard to hip precautions and application in transfers such as sit<>supine, sit<> stand and pivot turns was precise and accurate. She was able to demonstrate stair mgmt safely without intervention of PT. She increased her ambulatory distance to ~400' with improved gait pattern throughout. We discussed d/c home with HHPT services as current PT recommendation. Pt does verbalize concern that she would like to wait until Sat and have more confidence. She has not had OT services due to weekend coverage and would strongly need HHOT if d/ c home prior to IPOT eval. Goals Bed Mobility Goal Independent Transfer Goal Independent Gait Goal Independent,Front Wheel Walker Gait Distance 500 Other Goals Stair ascent/descent x16 steps with walker and modif Ind. Recall all HEP without vc's for support Days to Meet Goals 2 Frequency of Treatment Frequency Of Treatment Twice a Day Treatment Plan Physical Therapy Treatment Plan Bed Mobility Training,Transfer Training,Gait Training, Therapeutic Exercise,Balance Retraining,Post Op Education, Discharge Planning,Hot or Cold Pack,Neuromuscular Re-ed, Coordination Retraining,Manual Therapy Precautions Posterior Hip Precautions No Hip Flexion > 90 degrees,No Hip Internal Rotation,No Hip Adduction Weight Bearing Status Weight Bearing Status Weight Bear as Tolerated Recommendations To Nursing Amount of Assist Needed Standby Assistance Discharge Recommendations PT Discharge Recommendations Home with Assistance,Home Health Transportation Needs at Discharge Private Vehicle
--- NOTE | 2022-02-18 12:32 | CM.DPNOTE ---
Addendum entered by Patience Alarcon R.N. 02/18/22 13:29: August from [facility] called back and may not have bed for patient until Saturday. They can accept if [place] insurance auth goes through but unsure if it will due to patient is ambulating well. Patient would benefit from SNF as she lives alone. Plan: manager of enterprise to contact August and start [place] auth if patient is still interested in going to SNF Rehab and that is what therapies recommend. OT Eval pending for tomorrow which [place] will need. JAMAAL Original Note: Discharge Planning Note: Met with patient and discussed options for home with HH and SNF Rehab. She does live alone and has stairs. She is a little fearful still of returning to home. Showed her list on IPad of SNF choices and she is choosing [facility]. Contacted Niurka at [facility] who will review her chart today. Also left message and will send referral to [facility]. Plan: When medically cleared, SNF Rehab vs Home with HH Christine Alarcon RN/DCP
--- NOTE | 2022-02-18 15:44 | PT.IPTN ---
Current Diagnoses Fracture of unspecified part of neck of left femur, initial encounter for closed fracture (02/16/22) Surgery Performed Operation Date: 02/16/22 13:30 Actual Procedures p Partial Hip Arthroplasty(Left) - Adela Dent MD Physical Therapy Treatment Note M2 PT-IP Current Condition Start: 02/17/22 11:47 Freq: Status: Active Protocol: Document 02/17/22 13:50 SP (Rec: 02/17/22 17:07 SP [id number]) Physical Therapy Current Condition Current Condition Evaluation Date 02/17/22 Treatment Diagnosis difficulty with ambulation Onset Date 02/16/22 M3 PT-IP Subjective Start: 02/17/22 11:47 Freq: Status: Active Protocol: Document 02/18/22 15:32 LJ (Rec: 02/18/22 15:44 LJ [id number]) Subjective Physical Therapy Visit Type Type Treatment Note Visit Start Time 14:51 Visit Stop Time 15:15 Total Visit Minutes 24 Number of JUNIOR PROJECT COORDINATOR Visits 1 Physical Therapy Visit Comments Patient Comments Pt wanting to walk. States she would like to spend a day or 2 in a rehab setting to improve her mobility and confidence prior to going home where she lives alone. Therapy Pain Assessment Pain When Pain Assessed During Mobility Pain Present Pain Present Denied Pain M4 PT-IP Mobility and Gait Start: 02/17/22 11:47 Freq: Status: Active Protocol: Document 02/18/22 15:32 LJ (Rec: 02/18/22 15:44 LJ [id number]) PT-Transfer Assessment Sit to and From Stand Sit to and from Stand Independent Equipment Transfer Assistive Device Gait Belt,Front Wheeled Walker Transfers Transfer Destination Chair Transfer Technique ambulated using FWW Transfer Ability Level of Assist Independent Comments Mobility Comments Pt in bed upon arrival. Assisted with lowering foot rest then pt independent with sit>stand. Upon return to room pt ambulated to chair and reached back and lowered herself into chair independently. Gait Assessment Gait Gait Assistance Required: Independent,Standby Assistance Distance (Feet) 500 Able to Maintain Weight Bearing Status Yes During Gait Assistive Devices Assistive Device Gait Belt,Front Wheeled Walker Gait Deviations General Gait Pattern Decreased Stride Length Factors Limiting Gait Function Factors Limiting Gait Function Decreased Strength,Pain Comments Gait Comments Pt ambulated to south end of hallway then around the [facility] staiton then to stairs where she went up/down carrying her FWW without any safety issues or difficulty. Ambulated back to room. Pt left sitting in chair with all needs within reach. Stair Climbing Assessment Evaluation Level of Assist On Stairs Independent,Standby Assistance Devices Stair Climbing Assistive Devices Left Railing,Right Railing Technique/Endurance Stair Climbing Direction Ascend and Descend Stair Climbing Technique Step to Step Number of Steps Climbed 6 Comments Stair Climbing Comments Pt repeated stair climbing techniqueas earlier this morning. No safety issues or difficulties. Verbalized step pattern for ascending and descending with appropriate LE . M5 PT-IP Objective Assessments Start: 02/17/22 11:47 Freq: Status: Active Protocol: Document 02/18/22 09:58 BC (Rec: 02/18/22 10:07 BC [id number]) Orientation Orientation/Cognition Level of Alertness Alert Orientation Name,Age,Birthday,Month,Date, Year,Day of Week,Place, Situation Strength Lower Extremity Strength Assessment Left Impaired Comments Strength Comments LLE ankle 5/5; LLE knee flx/ ext 4-/5; LLE hip flx/abd 3+/5 M6 PT-IP Treatment Start: 02/17/22 11:47 Freq: Status: Active Protocol: Document 02/18/22 15:32 LJ (Rec: 02/18/22 15:44 LJ [id number]) Physical Therapy Treatment Exercises Exercises Ankle Pumps,Gluteal Sets,Quad Sets,Heel Slides Education Education Provided Precautions,Safety M7 PT-IP Assessment and Plan Start: 02/17/22 11:47 Freq: Status: Active Protocol: Document 02/18/22 15:32 LJ (Rec: 02/18/22 15:44 [id number]) PT Summary Assessment and Plan Potential Rehabilitation Potential Excellent Status of Condition at Evaluation Stable Summary Impairments Pain,Strength,Bed Mobility, Transfers,Gait,Activity Tolerance Progress Towards Goals Progressing Toward Goals Assessment Summary Pt increased gait distance and demonstrated safety on stairs . She is well aware and compliant with precautions and verbalizes them often during treatment. She is still wanting to go to SNF for a couple of days because she is concerned about going home alone. States she has friends who will look in on her but not constantly. Recommend HHPT to continue to improve strength, gait, and activity tolerance. Goals Bed Mobility Goal Independent Transfer Goal Independent Gait Goal Independent,Front Wheel Walker Gait Distance 500 Other Goals Stair ascent/descent x16 steps with walker and modif Ind. Recall all HEP without vc's for support Days to Meet Goals 2 Frequency of Treatment Frequency Of Treatment Twice a Day Treatment Plan Physical Therapy Treatment Plan Bed Mobility Training,Transfer Training,Gait Training, Therapeutic Exercise,Balance Retraining,Post Op Education, Discharge Planning,Hot or Cold Pack,Neuromuscular Re-ed, Coordination Retraining,Manual Therapy Precautions Posterior Hip Precautions No Hip Flexion > 90 degrees,No Hip Internal Rotation,No Hip Adduction Weight Bearing Status Weight Bearing Status Weight Bear as Tolerated Recommendations To Nursing Amount of Assist Needed Standby Assistance Discharge Recommendations PT Discharge Recommendations Home with Assistance,Home Health Transportation Needs at Discharge Private Vehicle
[2022-02-18] MEDS: METFORMIN HCL 500 MG TABLET 250 MG PO (17:37)
[2022-02-19] MEDS: IBUPROFEN 400 MG TABLET PO ×3 (00:34→11:55)
[2022-02-19] MEDS: ACETAMINOPHEN 325 MG TABLET 650 MG PO ×3 (00:35→11:56)
[2022-02-19 03:15] VITALS: BP 120/42; PULSE 70; RESP 20; TEMP 36.4; O2SAT 94
--- NOTE | 2022-02-19 07:47 | P.PN_ITS ---
Subjective Subjective Date Patient Seen: 02/19/22 Time Patient Seen: 07:30 Interval history: Patient is complaining of [id number] left hip pain this morning. She denies any new numbness or tingling. No nausea or vomiting. She is working with physical therapy. She is concerned because she has about 16 steps to get up to her home. She lives alone, but has friends and neighbors to check on her. The main concern is discharged to SNF versus home with home health. Exam Vital Signs (past 8 hours): - 02/19/22 03:15 Temperature 97.5 F L Pulse Rate 70 Respiratory Rate 20 Blood Pressure 120/42 L Pulse Oximetry 94 Oxygen Flow Rate 0 Fraction of Inspired Oxygen 28 SaO2/FiO2 Ratio 350 Oxygen Delivery Method Room Air Oxygen Flow Rate 0 Narrative Exam Narrative: Pleasant 76-year-old female, resting comfortably in bed, no acute distress. Right hip dressing is clean, dry, intact. No surrounding erythema, induration, or cara pus. Bilateral lower extremity: Motor functions are grossly intact, sensation is grossly intact to light touch, calves are soft and nontender palpation. Objective Labs Result Diagrams: 02/17/22 05:19 [facility] Medical History Astigmatism Radford's cyst of knee Cataract (lens) fragments in eye following cataract surgery, bilateral Diverticulosis Fatty liver Hearing loss Internal hemorrhoids Left anterior cruciate ligament tear Murmur Osteoarthritis of left knee Postmenopausal Primary osteoarthritis of knees, bilateral Umbilical hernia Surgical History History of tonsillectomy Hx of colonoscopy with polypectomy Social History household members: none Smoking Status: Former smoker alcohol intake: never Assessment & Plan Post-op Postoperative Procedures: Procedures Operation Date: 02/16/22 13:30 Actual Procedure Side Surgeon p Partial Hip Arthroplasty Left Adela Dent MD Postoperative day: 1 Postoperative status narrative: -stable status post left hip hemiarthroplasty, posterior approach Postoperative plan narrative: -mobilize with physical therapy. Weightbearing as tolerated. Maintain posterior hip precautions x6 weeks -continue with multimodal pain management -aspirin 81 mg b.i.d. x6 weeks for DVT prophylaxis. SCDs while in hospital. -discharge: Home with home health versus SNF. I will check in with her later today after her morning session of physical therapy to determine the plan. -Follow-up in 2 weeks with [facility] Quality VTE Deep Vein Thrombosis/Pulmonary Embolism Present on Admission: No
--- NOTE | 2022-02-19 07:56 | CM.DPC ---
Addendum entered by Shawna Brantley R.N. 02/19/22 11:57: Spoke to Vika at the [facility], and found a armored car guard and driver named Kirt. Spoke to Kirt, he does not have a cell phone, but he is on his way here from [place]. He should be here closed to 1300. Updated patient, and let the front end loader driver by the ER know. He is driving a black [employer] Golf. Addendum entered by Shawna Brantley R.N. 02/19/22 11:22: Called [facility] and spoke to Jossue, and let him know that patient is discharging home today. Faxed over DC Summary, orders, and face to face. Addendum entered by Shawna Brantley R.N. 02/19/22 10:45: Spoke to patient, after speaking to O.T. Let her know that [place] most likely will not cover rehab, she has been ambulatory with her walker with P.T. Patient is prepared to go home, but needs a ride She does not have credit cards on her, and is concerned about the fee. Called over at [facility], and left a message with Estefanía. Called the central [employer] number, spoke to Vika in transportation, and she stated that she would ask around to see if there are any volunteers. Anita Jones will DC patient today, and will update [facility]. Original Note: DCP Cont: Spoke to Anita Sanr, mentioned, may discharge home today if she does well with P.T. It is noted that patient was going to potentially go to [facility], most likely tomorrow, but with elective surgery, and how she has been ambulating with P.T, may be difficult to get insurance auth. As a back up, called Miki Mcdermott case management manager. She indicated, she had not received any information on patient. Went ahead and faxed over P.T. notes. Patient lives in [place] alone, has several stairs to navigate. P: DCP to continue to follow. Plan most likely is home with [facility]. Will find out today if [employer] may potentially auth her for skilled, but most likely, will not. Shawna Brantley RN/Enrollment Eligibility Representative
--- NOTE | 2022-02-19 08:04 | PT-IP ANOTE ---
Attempted to see pt but breakfast was served and pt wanted to sit and eat breakfast. She did bed mobility indep and sit to stand iindep and SBA to walk 10ft around bed to sit on chair w/call light in chair w/her. PT to check in later.
[2022-02-19 08:33] VITALS: BP 138/41; PULSE 61; RESP 16; TEMP 36.5; O2SAT 95
[2022-02-19 09:09] VITALS: BP 138/41; PULSE 61
[2022-02-19] MEDS: DOCUSATE 100 MG CAPSULE PO (09:09)
[2022-02-19] MEDS: CHOLECALCIFEROL (VITAMIN D3) 5,000 UNIT TABLET 5000 UNIT PO (09:09)
[2022-02-19] MEDS: SODIUM CHLORIDE 0.9% FLUSH 10 ML IV (09:09)
[2022-02-19] MEDS: ATORVASTATIN 20 MG TABLET 40 MG PO (09:09)
[2022-02-19] MEDS: ASPIRIN EC 81 MG TABLET PO (09:09)
[2022-02-19] MEDS: lisinopriL 20 MG TABLET PO (09:09)
[2022-02-19] MEDS: PANTOPRAZOLE DR 20 MG TABLET PO (09:09)
--- NOTE | 2022-02-19 09:25 | PT.IPTN ---
Current Diagnoses Fracture of unspecified part of neck of left femur, initial encounter for closed fracture (02/16/22) Surgery Performed Operation Date: 02/16/22 13:30 Actual Procedures p Partial Hip Arthroplasty(Left) - Adela Dent MD Physical Therapy Treatment Note M2 PT-IP Current Condition Start: 02/17/22 11:47 Freq: Status: Active Protocol: Document 02/17/22 13:50 SP (Rec: 02/17/22 17:07 SP [id number]) Physical Therapy Current Condition Current Condition Evaluation Date 02/17/22 Treatment Diagnosis difficulty with ambulation Onset Date 02/16/22 M3 PT-IP Subjective Start: 02/17/22 11:47 Freq: Status: Active Protocol: Document 02/19/22 09:12 LJ (Rec: 02/19/22 09:25 LJ [id number]) Subjective Physical Therapy Visit Type Type Treatment Note Visit Start Time 08:46 Visit Stop Time 09:02 Total Visit Minutes 17 Number of OSTEOPATHIC PHYSICIAN Visits 1 Physical Therapy Visit Comments Patient Comments Pt willing to work with PT. Continues to express concern about not wanting to go home alone. She now is concerned that she won't have a ride and that she won't be able to get up from her recliner. Therapy Pain Assessment Pain When Pain Assessed During Mobility Pain Present Pain Present Pain Reported Location Left Hip Intensity 2 Description Aching M4 PT-IP Mobility and Gait Start: 02/17/22 11:47 Freq: Status: Active Protocol: Document 02/19/22 09:12 LJ (Rec: 02/19/22 09:25 LJ [id number]) PT-Transfer Assessment Sit to and From Stand Sit to and from Stand Independent Equipment Transfer Assistive Device Gait Belt,Front Wheeled Walker Transfers Transfer Destination Chair Transfer Technique ambulated using FWW Transfer Ability Level of Assist Independent Comments Mobility Comments Pt in chair finishing breakfast. She is independent with transfers demonstrating ability to get up and down from chair several times without difficulty. Gait Assessment Gait Gait Assistance Required: Independent,Standby Assistance Distance (Feet) 300 Assistive Devices Assistive Device Gait Belt,Front Wheeled Walker Gait Deviations General Gait Pattern Decreased Stride Length Factors Limiting Gait Function Factors Limiting Gait Function Decreased Strength,Pain Comments Gait Comments Pt ambulatetd to stairs, went up/down x2 carrying FWW without difficulty. Ambulated around [place] safely with good gait mechanics. Reduced time spent on SLS LLE during stance phase of gait pattern. Pt returned to room and sat in chair indep . Took 2 steps to chair without FWW. Stair Climbing Assessment Evaluation Level of Assist On Stairs Independent Devices Stair Climbing Assistive Devices Left Railing,Right Railing Technique/Endurance Stair Climbing Direction Ascend and Descend Stair Climbing Technique Step to Step Number of Steps Climbed 3 Stair Climbing Set # Repetitions (reps) 2 Comments Stair Climbing Comments Pt repeated stair climbing techniqueas earlier this morning. No safety issues or difficulties. Verbalized step pattern for ascending and descending with appropriate LE . M5 PT-IP Objective Assessments Start: 02/17/22 11:47 Freq: Status: Active Protocol: Document 02/18/22 09:58 BC (Rec: 02/18/22 10:07 BC [id number]) Orientation Orientation/Cognition Level of Alertness Alert Orientation Name,Age,Birthday,Month,Date, Year,Day of Week,Place, Situation Strength Lower Extremity Strength Assessment Left Impaired Comments Strength Comments LLE ankle 5/5; LLE knee flx/ ext 4-/5; LLE hip flx/abd 3+/5 M6 PT-IP Treatment Start: 02/17/22 11:47 Freq: Status: Active Protocol: Document 02/19/22 09:12 (Rec: 02/19/22 09:25 [id number]) Physical Therapy Treatment Exercises Exercises Ankle Pumps,Gluteal Sets,Quad Sets,Heel Slides Education Education Provided Precautions,Safety Other Treatments Other Treatment Performed sit<>stand x6 to practice getting out of recliner at home M7 PT-IP Assessment and Plan Start: 02/17/22 11:47 Freq: Status: Active Protocol: Document 02/19/22 09:12 (Rec: 02/19/22 09:25 [id number]) PT Summary Assessment and Plan Potential Rehabilitation Potential Excellent Status of Condition at Evaluation Stable Summary Impairments Pain,ROM,Strength,Activity Tolerance Assessment Summary Pt doing very wellwith all mobility and gait. She is able to recall all precautions and is going up/down stairs safely. She is still concerned about going home alone but is realizing that she may not get authorization to go to a SNF after DC. She states she has friends willing to help and was encouraged to contact them is she needs help. Instructed to continue with all exercises provided in packet. She has met all goals and is safe for DC home. Goals Bed Mobility Goal Independent Transfer Goal Independent Gait Goal Independent,Front Wheel Walker Gait Distance 500 Other Goals Stair ascent/descent x16 steps with walker and modif Ind. Recall all HEP without vc's for support Days to Meet Goals 2 Frequency of Treatment Frequency Of Treatment Twice a Day Treatment Plan Physical Therapy Treatment Plan Bed Mobility Training,Transfer Training,Gait Training, Therapeutic Exercise,Balance Retraining,Post Op Education, Discharge Planning,Hot or Cold Pack,Neuromuscular Re-ed, Coordination Retraining,Manual Therapy Precautions Posterior Hip Precautions No Hip Flexion > 90 degrees,No Hip Internal Rotation,No Hip Adduction Weight Bearing Status Weight Bearing Status Weight Bear as Tolerated Recommendations To Nursing Amount of Assist Needed Standby Assistance Discharge Recommendations PT Discharge Recommendations Home with Assistance,Home Health Transportation Needs at Discharge Private Vehicle
--- NOTE | 2022-02-19 10:45 | P.DS_ITS ---
History of Present Illness History of Present Illness Date Patient Seen: 02/19/22 Time Patient Seen: 10:45 Chief complaint: LEFT PARTIAL HIP ARTHROPLASTY Narrative: Patient is feeling well and would like to be discharged home with home health. She worked with physical therapy. Please see prior progress note from today. Discharge Providers Provider Date of admission: 02/16/22 11:21 Discharge Date: 02/19/22 Primary care physician: SUPA Lilly Consults: 02/16/22 10:13 Consult to Anesthesiology Routine Comment: Consulting Provider: Anesthesiologist Reason for consultation: Regional block for post operative pain control 02/16/22 17:16 Consult to Discharge Planning Routine Comment: Consult to Physical Therapy Evaluate & Treat Comment: Physician Instructions: post op NANCY protocol 02/17/22 14:15 Consult to Occupational Therapy Evaluate & Treat Comment: Physician Instructions: Evaluate and treat Discharge provider: Anita Jones PA-C Summary Hospital Course Discharge Diagnosis: left hip femoral neck fracture Hospital Course: Operative Date/Time/Diagnoses Date of procedure: 02/16/22 Time of procedure: 13:30 Procedure & Clinicians Procedure: Left hip unipolar Same procedure as scheduled: Yes Indications: The patient has a history of a fall with the acute onset of left hip pain.? X- rays showed evidence of a left femoral neck fracture.? She is brought to the operating room for a unipolar left hip replacement. The risks, benefits and alternatives to surgery were discussed with the patient prior to proceeding. Risks discussed included, but were not limited to, failure to relieve pain, leg length discrepancy, dislocation, stiffness, infection, nerve damage, deep venous thrombosis, pulmonary embolism, stroke, coma, heart attack, permanent paralysis and , as well as the potential need for eventual revision of the prosthetic. Surgeon: Adela Busby Multiple Games Dealer: Michelle Kraus Anesthesia Type: General and Spinal Operative Notes Findings: Soft bone, left femoral neck fracture, adequate stability, Closure Type: primary Specimen(s): none sent Prosthetic devices, grafts, tissues, transplants, or devices: busby and nephew size 12 cemented Synergy, +0 neck, 46 mm femoral head, +10 distal cement analyzer, small cement restrictor Estimated Blood Loss (mL): 250 Blood products transfused: none Status at Discharge Cognitive/behavioral status at discharge: at baseline, oriented Functional status at discharge: uses cane/walker Overall status at discharge: patient is progressing back to baseline Exam Vital Signs (past 8 hours): - 02/19/22 03:15 02/19/22 08:33 02/19/22 09:09 Temperature 97.5 F L 97.7 F Pulse Rate 70 61 61 Respiratory Rate 20 16 Blood Pressure 120/42 L 138/41 L 138/41 L Pulse Oximetry 94 95 Oxygen Flow Rate 0 0 Fraction of Inspired Oxygen 28 SaO2/FiO2 Ratio 350 Oxygen Delivery Method Room Air Oxygen Flow Rate 0 Narrative Exam Narrative: Please see prior exam from today Objective Labs Result Diagrams: 02/17/22 05:19 PFSH Medical History Astigmatism Radford's cyst of knee Cataract (lens) fragments in eye following cataract surgery, bilateral Diverticulosis Fatty liver Hearing loss Internal hemorrhoids Left anterior cruciate ligament tear Murmur Osteoarthritis of left knee Postmenopausal Primary osteoarthritis of knees, bilateral Umbilical hernia Surgical History History of tonsillectomy Hx of colonoscopy with polypectomy Social History household members: none Smoking Status: Former smoker alcohol intake: never Discharge Assessment & Plan Assessment and Plan Assessment: -stable status post left hip hemiarthroplasty, posterior approach Plan of Treatment: -mobilize with PT. Weightbearing as tolerated with front wheel walker. Maintain posterior hip precautions x6 weeks -continue multimodal pain management -aspirin 81 mg twice daily x6 weeks for DVT prophylaxis -discharge home today with home health Discharge Plan Discharge Plan Patient Disposition: Home Health Service Discharge orders & Medications Prescriptions: New aspirin 81 mg Tablet,Delayed Release (Dr/Ec) 81 mg PO BID 42 Days Qty: 84 0RF Rx Instructions: Prevent blood clots docusate sodium 100 mg Capsule 100 mg PO BID PRN (Reason: constipation) Qty: 14 0RF ibuprofen 400 mg Tablet 400 mg PO Q6HR MDD Max 2400 mg per day PRN (Reason: Pain/inflammation) Qty: 90 0RF Continued lisinopril 20 mg Tablet 20 mg PO DAILY metformin 1,000 mg Tablet 1,000 mg PO BID acetaminophen 500 mg Tablet 1,000 mg PO TID cholecalciferol (vitamin D3) [Vitamin D3] 5,000 unit Tablet 5,000 unit PO 2XW omeprazole 20 mg capsule,delayed release(DR/EC) 20 mg PO DAILY rosuvastatin 20 mg tablet 20 mg PO DAILY Discontinued aspirin 325 mg Tablet 325 mg PO TID PRN (Reason: pain and swelling) Follow up/Referrals: Nell Sosa ARNP [Primary Care Provider] - Adela Busby MD [Physician] - (10-14 days for postoperative visit) Diet/Activity/Treatments Diet: Carb-consistent/Diabetic Other treatments: Medications: Aspirin 81mg twice daily x6 weeks to prevent blood clots -OTC Tylenol 500 mg 1 tablet every 4 hours as needed for pain/fever. Max 6 tablets per day. -Ibuprofen 400 mg 1 tablet every 4 hours as needed for pain/inflammation. Max 2,400 mg per day. -As needed medications: -Ducolax and /or MiraLax as needed for constipation from narcotic pain medications. -Pepcid AC as needed for stomach upset (usually from aspirin or ibuprofen). Dressing/Wound care: -Keep Aquacell dressing in place until postoperative follow-up office visit. -Okay to shower. Keep wound out of direct water stream. No soaking or submerging until all the scabs fall off (approximately 6 weeks). -No lotions, ointments, or scar creams directly to the incision until the wound is healed (4-6 weeks), -Please call the office if dressing becomes wet, soiled, or saturated. Activities: -Maintain posterior hip precautions x6 weeks. -Weight-bearing as tolerated. Use front wheeled walker, and progress to cane when safe. -Continue with home exercises as directed by your physical therapist. -Elevate ?toes above the nose if you have significant swelling in your lower leg. (A wedge pillow is easiest.) -Ice your incision as needed for pain/inflammation/swelling. Protect your skin with a folded pillowcase. Follow-up: -Follow-up with your surgeon or PA in the office in 10-14 days after surgery. -Follow-up with your surgeon 6 weeks postoperatively. Call the office if you have chest pain, shortness of breath, significant swelling that will not resolve with elevating, fever over 101?, significantly worsening pain, or are concerned you might need to go to the Emergency Room. [facility]: [phone] Skin/Wound/Dressing Care Report to your healthcare provider any signs of infection, such as:: chills, fever, night sweats, unusual drainage and unusual redness Visit Report/Discharge Packet Instructions: DI for Hip Replacement Stand Alone Forms: Surgery Discharge Discharge Data Primary Care Provider: Nell Sosa VTE Deep Vein Thrombosis/Pulmonary Embolism Present on Admission: No
--- NOTE | 2022-02-19 11:49 | OT.IP.EVAL ---
Current Diagnoses Fracture of unspecified part of neck of left femur, initial encounter for closed fracture (02/16/22) Surgery Performed Operation Date: 02/16/22 13:30 Actual Procedures p Partial Hip Arthroplasty(Left) - Adela Dent MD Past Medical History (Last Reviewed 02/19/22 @ 10:47 by Anita Jones PA-C) Astigmatism Radford's cyst of knee Cataract (lens) fragments in eye following cataract surgery, bilateral Diverticulosis Fatty liver Hearing loss Internal hemorrhoids Left anterior cruciate ligament tear Murmur Osteoarthritis of left knee Postmenopausal Primary osteoarthritis of knees, bilateral Umbilical hernia Surgical History (Last Reviewed 02/19/22 @ 10:47 by Anita Jones PA-C) History of tonsillectomy Hx of colonoscopy with polypectomy Occupational Therapy Inpatient Evaluation/Re-Eval M1 PT/OT-IP Prior Functional Status Start: 02/17/22 11:47 Freq: Status: Active Protocol: Document 02/19/22 13:02 CGR (Rec: 02/19/22 13:12 CGR [id number]) Medical Review Prior Functional Status Medical History Reviewed Yes Communication WNL Mobility and Gait Independent; walks 45 min near daily for exercise. Activities of Daily Living and IADL's Independent Prior Functional Level (Other details) Works as a mmi teacher Social History Household Members none Living Arrangements Apartment/Condo Number of Stairs To Enter/Railing? One flight of stairs to enter apartment. 8 steps, then a landing, 8 steps more. Bilateral railing that can be reached simultaneously. 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 M2 OT-IP Current Condition Start: 02/19/22 13:02 Freq: Status: Active Protocol: Document 02/19/22 13:02 CGR (Rec: 02/19/22 13:12 CGR [id number]) Occupational Therapy Current Condition Current Condition Evaluation Date 02/19/22 Treatment Diagnosis L partial hip replacement Diagnosis Onset Date 02/16/22 Post Operative Precautions Posterior Hip Precautions No Hip Flexion > 90 degrees,No Hip Internal Rotation,No Hip Adduction Weight Bearing Status Weight Bearing Status Weight Bear as Tolerated M3 OT- IP Subjective and Pain Start: 02/19/22 13:02 Freq: Status: Active Protocol: Document 02/19/22 13:02 CGR (Rec: 02/19/22 13:12 CGR [id number]) OT- Subjective Occupational Therapy Visit Type Type Initial Evaluation Visit Start Time 11:17 Visit Stop Time 11:49 Total Visit Minutes 32 OT Pain Assessment Pain When Pain Assessed During Mobility Pain Present Pain Present Denied Pain M4 OT- IP ADL's Start: 02/19/22 13:02 Freq: Status: Active Protocol: Document 02/19/22 13:02 CGR (Rec: 02/19/22 13:12 CGR [id number]) OT [id number] Comments OT Self-Feeding Comments not meal time OT ADL-Grooming General Evaluation Grooming Ability Independent Areas Needing Assistance Face Washing Comments OT Grooming Comments standing at sink OT ADL-Oral Care General Eval Oral Care Ability Independent Areas of Assistance Brushing Teeth Comments Oral Care Comments standing at sink OT ADL-Dressing General Eval Lower Body Dressing Ability Standby Assistance Areas Needing Assistance Socks Assistive Devices Dressing Assistive Devices Lithopone Charger,Sock Aid Comments OT Dressing Comments Educated pt on LB dressing. Pt used hip kit to doff and don socks and was educated on pants/underware. Pt states understanding. OT ADL-Toileting General Evaluation Toileting Ability Independent OT ADL-Bathing Comments OT Bathing Comments not performed M5 OT- IP IADL's Start: 02/19/22 13:02 Freq: Status: Active Protocol: Document 02/19/22 13:02 CGR (Rec: 02/19/22 13:12 CGR [id number]) OT-Instrumental Activities of Daily Living Deficits IADL Deficits Identified No Deficits Home Safety Awareness Awareness of Need for Assistance at Home Good Awareness Ability to Problem Solve Emergency Able to Problem Solve Situations Medication Management Medication Management No Deficits Identified Money Management Money Management No Deficits Identified Meal Preparation Meal Preparation No Deficits Identified Marketing Communications Manager Marketing Communications Manager No Deficits Identified M6 OT- IP Functional Cognition Start: 02/19/22 13:02 Freq: Status: Active Protocol: Document 02/19/22 13:02 CGR (Rec: 02/19/22 13:12 CGR [id number]) Cognitive Factors Limiting Selfcare Function Cognitive Ability Level of Alertness Alert Patient Orientation Name,Age,Birthday,Month,Date, Year,Day of Week,Place, Situation Attention Span Ability Capable of Focused Attention, Capable of Sustained Attention Ability to Follow Commands Able to Follow One Step Commands with Increased Time, Able to Follow One Step Commands with Repetition OT- Vision and Hearing OT- Hearing Assessment OT- Hearing Assessment WFL OT- Vision Assessment Visual Acuity Glasses All The Time Visual Attentiveness WFL Occular Pursuits WFL Visual Convergence WFL M7 OT- IP Mobility and Balance Start: 02/19/22 13:02 Freq: Status: Active Protocol: Document 02/19/22 13:02 CGR (Rec: 02/19/22 13:12 CGR [id number]) OT-Transfer Assessment Sit to and From Stand Sit to and from Stand Independent Transfers Transfer Ability Independent Technique Transfer Destination Chair,Toilet Transfer Technique Stand Step Pivot Devices Transfer Assistive Devices Gait Belt,Front Wheeled Walker Comments Mobility Comments mobility around the room. OT- Balance Assessment Sitting Balance and Reactions Static Sitting Balance Ability Normal Dynamic Sitting Balance Ability Normal M8 OT- IP Objective Assessments Start: 02/19/22 13:02 Freq: Status: Active Protocol: Document 02/19/22 13:02 CGR (Rec: 02/19/22 13:12 CGR [id number]) OT Gross Range of Motion Upper Extremity Range of Motion Assessment Within Functional Limits OT Strength Upper Extremity Strength Assessment Within Functional Limits OT- Coordination Assessment Upper Extremity Finger to Nose Test Within Functional Limits Finger Tapping Test Within Functional Limits OT-Muscle Tone Assessment Muscle Tone WNL Yes OT Sensation Assessment Edema Edema Absent M9 OT- IP Assessment and Plan Start: 02/19/22 13:02 Freq: Status: Active Protocol: Document 02/19/22 13:02 CGR (Rec: 02/19/22 13:12 CGR [id number]) OT Summary Assessment and Plan Potential Rehabilitation Potential Excellent Analytic Complexity at Evaluation Low Summary OT Impairments Functional Mobility,Dressing, Shower Transfers,Activity Tolerance Progress Towards Goals Safe For Discharge Assessment Summary Pt presents as a low complexity evaluation s/p admit for L partial hip replacement. Pt is doing well and is close to her baseline for ADLs abilities. Pt may benefit from shower training and further LB dressing training/practice. However, pt is likely safe for d/c home today. Goals Dressing Goal Independent,Lithopone Charger,Sock Aid Shower Transfer Goal Independent Days to Meet Goals 2 Frequency of Treatment Frequency Of Treatment Once a Day Treatment Plan OT Treatment Plan ADL Training,Functional Mobility,Patient/Family Education,Discharge Planning Other Treatment Recommendations and Next shower and LB dressing Treatment Focus Discharge Recommendations OT Discharge Recommendations Home Transportation Needs at Discharge Private Vehicle
[2022-02-19 12:15] VITALS: BP 137/49; PULSE 73; RESP 16; TEMP 36.2; O2SAT 96
--- NOTE | 2022-02-19 14:19 | PC.NURSE ---
Pt is A&Ox3, VSS, afebrile on RA. She is able to ambulate to BR using FWW with SBA. She reports pain is well controlled at 2/10. Dressing to R hip c/d/i. She is cleared medically for discharge home with home health. Per PT patient is safe and clear to discharge home today. She verbalizes understanding of discharge medications, activity,site care s/sx of infection/complications as well as follow up appointments. With assistance from CM transportation for patient arranged through senior resources. Patient is escorted to the lobby by the ER entrance and to vehicle with a transporter named Pimento. She is discharged with all of her belongings including her FWW.
== END 2022-02-19 13:15 | disposition home health service (06) | DRG 522 ==
PROVIDERS: Admitting Provider Orthopaedic Surgery; PCP Registered Nurse; Referring Provider Registered Nurse; Visit Provider Orthopaedic Surgery
PROC: 0SRS0JZ Replacement of Left Hip Joint, Femoral Surface with Synthetic Substitute, Open Approach (ICD-10-PCS; CPT 27125; principal; 2022-02-16 13:30)
DX: S72.002A Fracture of unspecified part of neck of left femur, initial encounter for closed fracture (principal); N39.0 Urinary tract infection, site not specified; W19.XXXA Unspecified fall, initial encounter; Z79.84 Long term (current) use of oral hypoglycemic drugs; Z20.822 Contact with and (suspected) exposure to COVID-19; Z87.891 Personal history of nicotine dependence; E11.65 Type 2 diabetes mellitus with hyperglycemia
CPT/HCPCS: 36415; 72170; 73502; 80048; 81001; 82962; 83036; 85014; 85018; 85025; 87077; 87086; 87147; 87186; 87635; 93005; 94760; 94762; 97110; 97116; 97161; 97165; 97530; 97535; C9803; C9290; J0171; J0690; J1100; J2250; J2405; J2704; J3010

== ENCOUNTER → 2024-08-12 16:23 | Outpatient (CLI) | payer MEDICARE, SELFPAY ==
[2022-02-16 18:06] VITALS: BMI 29.5
--- NOTE | 2024-08-12 16:39 | EKG_ITS ---
[address] [address] Test Date: 2024-08-12 Pat Name: Eveline Maier Department: [facility] Room: Gender: Female Institution Librarian: KALA : 1945 Requested By: Order Number: [id number] Reading MD: Sushil Jean Baptiste Measurements Intervals Belva Rate: 72 P: 35 [place]: 176 QRS: 37 QRSD: 82 T: 61 QT: 384 QTc: 420 Interpretive Statements Normal sinus rhythm with sinus arrhythmia Electronically Signed On 08-14-2024 19:05:59 PDT by Sushil Jean Baptiste
[2024-08-12 17:30] LABS: Appearance Urine UA CLEAR; Bilirubin Urine UA NEGATIVE (NEGATIVE); Color Urine UA YELLOW; Glucose Urine UA NEGATIVE (Negative); Ketones Urine UA TRACE (NEGATIVE); Leukocyte Esterase Urine UA 1+ (NEGATIVE); Nitrite Urine UA NEGATIVE (Negative); Occult Blood Urine UA NEGATIVE (Negative); Protein Urine UA NEGATIVE (Negative); Specific Gravity Urine UA 1.015 (1.000-1.035)
[2024-08-12 17:34] LABS: pH Urine UA 6.5 (4.5-8.0)
[2024-08-12 17:50] LABS: Bacteria Urine Moderate (10-30); RBC Urine None Seen (0-5/HPF); Urine Volume 10mL (spun); WBC Urine 5-10/HPF (0-5/HPF)
[2024-08-12 17:51] LABS: Culture Indicated Urine Specimen Cultured; Squamous Epithelial Cell Urine 10-30 /HPF (0-5/HPF)
[2024-08-12 17:52] LABS: Add Manual Diff / Slide Review NO; Basophils Absolute Auto 100 /uL (0-100); Basophils Percent Auto 1.1 % (0-2); Eosinophils Absolute Auto 200 /uL (0-450); Eosinophils Percent Auto 3.2 % (2-4); Hematocrit 36.1 % (36-46); Hemoglobin 11.9 g/dL (12.0-16.0); Lymphocytes Absolute Auto 2100 /uL (1100-4500); Lymphocytes Percent Auto 28.3 % (25-40); Mean Corpuscular HGB Conc 32.9 % (30-36); Mean Corpuscular Hemoglobin 28.3 PG (26-34); Mean Corpuscular Volume 86.1 fL (80-100); Monocytes Absolute Auto 700 /uL (0-900); Monocytes Percent Auto 9.8 % (3-14); Neutrophils Absolute Auto 4300 /uL (1500-7000); Neutrophils Percent Auto 57.6 % (50-75); Platelet Count 190 X10^3/uL (150-400); Red Cell Distribution Width 14.7 % (11.6-14.8); White Blood Cell Count 7.5 X10^3/uL (4.5-11.0)
[2024-08-12 18:10] LABS: BUN Creatinine Ratio 21.4 (6-22); Blood Urea Nitrogen 18 mg/dL (7-17); Calcium 9.8 mg/dL (8.4-10.2); Carbon Dioxide 23 mmol/L (22-32); Chloride 102 mmol/L (98-107); Estimated Glomerular Filt Rate > 60 mL/min (>60); Glucose 107 mg/dL (70-99); HEMOLYSIS < 15 (0-50); Potassium 4.5 mmol/L (3.4-5.1); Sodium 137 mmol/L (137-145)
[2024-08-12 18:30] LABS: Hemoglobin A1C% w Est Avg Glu 5.7 % (4.0-6.0)
== END ==
PROVIDERS: PCP Registered Nurse; Visit Provider Orthopaedic Surgery
DX: Z01.818 Encounter for other preprocedural examination (principal); R73.03 Prediabetes
CPT/HCPCS: 36415; 80048; 81001; 83036; 85025; 87086; 93005